=== PATIENT | female | born 1985 | race African-American/Black ===

== ENCOUNTER 2020-01-12 06:11 | Emergency (ER) | payer OTHER ==
[~2020-01-12] VITALS: Ht 149.9 cm; Wt 61.2 kg
[2020-01-12 08:58] VITALS: BP 109/74
== END 2020-01-12 09:07 | disposition home or self-care (01) ==
LOC: ER 06:11
DX: F10.920 Alcohol use, unspecified with intoxication, uncomplicated (principal); M25.571 Pain in right ankle and joints of right foot; R47.81 Slurred speech; R40.0 Somnolence; F11.90 Opioid use, unspecified, uncomplicated; F17.210 Nicotine dependence, cigarettes, uncomplicated; Z79.2 Long term (current) use of antibiotics